=== PATIENT | male | born 1940 | race Hispanic/Latino ===

== ENCOUNTER 2017-06-24 06:38 | Day surgery (SDC) | payer MEDICARE, OTHER ==
[2017-06-24] MEDS ORDERED: ECOTRIN PO ONE (07:03)
[2017-06-24] MEDS ORDERED: NACL 0.9% 500 ML 500 ML ONE (07:03)
[2017-06-24 07:46] LABS: Basophils # (Auto) 0.1 K/mm3 (0.0-0.1); Basophils % (Auto) 0.7 % (0.0-1.8); Eosinophils # (Auto) 0.3 K/mm3 (0.0-0.4); Eosinophils % (Auto) 4.2 % (0.0-4.3); Hematocrit 39.6 % (35.5-45.6); Hemoglobin 13.4 gm/dl (11.8-15.2); Lymphocytes # (Auto) 1.7 K/mm3 (1.2-5.4); Lymphocytes % (Auto) 20.8 % (13.4-35.0); Mean Corpuscular HGB Conc 34 % (32-34); Mean Corpuscular Hemoglobin 29 pg (28-32); Mean Corpuscular Volume 85 fl (84-94); Monocytes # (Auto) 0.8 K/mm3 (0.0-0.8); Monocytes % (Auto) 9.3 % (0.0-7.3); Platelet Count 217 K/mm3 (140-440); Red Blood Count 4.64 M/mm3 (3.65-5.03); Red Cell Distribution Width 14.9 % (13.2-15.2)
[2017-06-24 07:53] LABS: INR 0.93 (0.87-1.13)
[2017-06-24] MEDS ORDERED: NACL 0.9% 500 ML 500 ML IV SCH (08:00)
[2017-06-24] MEDS ORDERED: HEPARIN/NS 5000 UNIT/500ML(CATH LAB) 1,000 ML IR ONE (08:13)
[2017-06-24] MEDS ORDERED: CALAN ONE (08:14)
[2017-06-24] MEDS ORDERED: XYLOCAINE 2% INFILTRATI ONE (08:14)
[2017-06-24] MEDS ORDERED: NITROGLYCERIN SYRINGE 0 ML ONE (08:14)
[2017-06-24] MEDS ORDERED: SUBLIMAZE ONE (08:14)
[2017-06-24] MEDS ORDERED: VERSED ONE (08:15)
[2017-06-24 08:32] LABS: BUN/Creatinine Ratio 19; Blood Urea Nitrogen 19 mg/dL (9-20); Calcium 9.2 mg/dL (8.4-10.2); Hemolysis Index 3
[2017-06-24] MEDS ORDERED: HALFPRIN EC PO ONE (08:42)
[2017-06-24 09:19] LABS: Chol/HDL Ratio 3.23 %
[2017-06-24] MEDS: HEPARIN 10,000 UNITS/10 ML ONE ×2 (09:20→09:32)
[2017-06-24] MEDS: APRESOLINE ONE ×2 (09:38→09:41)
[2017-06-24] MEDS ORDERED: HALFPRIN EC PO SCH (10:00)
--- NOTE | 2017-06-24 11:17 | Cardiac Catherization Report ---
INDICATION FOR PROCEDURE: The patient is a 76-year-old white gentleman with history of hypertension, dyslipidemia, intermittent claudication, was noted to have abnormal nuclear imaging. Had IV Lexiscan nuclear imaging performed which showed abnormal myocardial perfusion imaging demonstrating ischemia the basal inferior and apical septal myocardial carrasco. Fixed apical defect noted. Echocardiogram showed ejection fraction of 55-60% with a severely enlarged left atrium noted. Presently cardiac catheterization being performed for evaluation of his abnormal nuclear imaging with multiple risk factors. The patient is aware of the procedure, potential complications and alternatives of therapy available. DESCRIPTION OF PROCEDURE: The patient was brought to the catheterization laboratory in a fasting condition. The right wrist area and forearm thoroughly cleansed with Betadine solution. Sterile drapes were applied. The patient was evaluated for moderate sedation, and when it was felt appropriate, the patient was sedated with IV Versed and fentanyl at 9:13 a.m. Subsequently, after giving local anesthesia in the right wrist area, right radial artery puncture was made using 21-gauge arterial puncture needle. A 5-Hungarian slender sheath was introduced. A 5-Hungarian multipurpose catheter was used to obtain the angiograms of the left coronary artery in multiple views followed by angiograms of the left ventricle using the right JR4 catheter and the engagement of the right coronary artery with JR4 diagnostic catheter. Subsequently, it was decided to change the procedure to interventional procedure, namely measuring the IFR of the proximal RCA lesion. Subsequently, the patient was given IV heparin as anticoagulant, and using the same diagnostic catheter, after setting of the [place] pressure wire in a standard fashion, IFR being planned. [place] pressure wire was normalized in the standard fashion and a wire was passed across the lesion and IFR was measured. It was found to be 0.97, that not hemodynamically significant. Final angiograms were obtained, and there is no evidence of any injury from the [place] wire to the right coronary artery. The patient tolerated the procedure well. No untoward complications were noted. The patient tolerated the sedation well. The patient was monitored throughout with a pulse oximetry, EKG and noninvasive blood pressure monitoring. Sedation monitoring was discontinued at 9:45 a.m. Following findings were noted. HEMODYNAMICS: 1. Opening aortic pressure 195/96. Left ventricular pressure 198/28. No gradient across the aortic valve. Estimated ejection fraction of 65%. 2. Left ventriculogram done in MARTINEZ projection shows normal sized left ventricle, normal contractility. End-diastolic and systolic volumes are normal. Elevated end diastolic pressure of 28 mmHg noted. Right coronary artery dominant vessel shows 50-70% smooth lesion in the proximal one-third in addition to diffuse irregularities in the mid part. Distal vessel, large vessel without significant disease. IFR of the proximal lesion was measured. It was nonsignificant. 3. Left coronary artery arises normally from left coronary cusp. Diffuse calcification noted in the area of the left LAD and circumflex artery. Left main is very large smooth and normal. LAD curving around the apex shows mild smooth irregularities. This branch is also without significant disease. Ramus branch, fairly large branch, was 50% smooth, mildly calcific lesion in the distal part before its bifurcation. Circumflex artery relatively small caliber vessel without significant disease. FINAL IMPRESSION: Mild to moderate disease in the left coronary system and moderate disease in the proximal RCA and a functional evaluation with IFR showed it to be nonsignificant. He has excellent LV function. Also, has diastolic dysfunction with elevated end diastolic pressure noted. At this time, considering the above angiographic pictures, would continue medical therapy and aggressive risk factor modification. Findings were explained to the patient. The patient was discharged to the recovery area in stable condition. He will be monitored for next few hours. When stable, will be discharged home. JOB# [id number] BRUNO/MAMI MCNALLY
[2017-06-24 13:04] VITALS: BP 175/82
--- NOTE | 2017-06-24 13:54 | Short Stay Summary ---
Short Stay Documentation Date of service: 06/24/17 - History H&P: obtained from office - Allergies and Medications Current Medications: Allergies No Known Allergies Allergy (Verified 06/24/17 07:34) Home Medications Medication Instructions Recorded Confirmed Last Taken Type Dutasteride [Avodart] 0.5 mg PO DAILY 06/24/17 06/24/17 06/21/17 History 0.5mg Gabapentin [Neurontin] 300 mg PO DAILY 06/24/17 06/24/17 06/23/17 History 300mg Glycopyrrolate/Formoterol Fum 1 puff INHALATION DAILY 06/24/17 06/24/17 History [Bevespi Aerosphere Inhaler] 1 puff Hydralazine HCl 50 mg PO DAILY 06/24/17 06/24/17 06/23/17 History 50mg ISOSORBIDE MONOnitrate [Imdur ER] 30 mg PO DAILY 06/24/17 06/24/17 06/23/17 History 30mg Losartan [Cozaar] 100 mg PO DAILY 06/24/17 06/24/17 06/23/17 History 100mg Meloxicam 15 mg PO DAILY 06/24/17 06/24/17 06/23/17 History 15mg Pantoprazole [Protonix] 40 mg PO QDAY 06/24/17 06/24/17 06/23/17 History 40mg Tamsulosin [Flomax] 0.4 mg PO DAILY 06/24/17 06/24/17 06/23/17 History 0.4mg amLODIPine [Norvasc] 10 mg PO DAILY 06/24/17 06/24/17 06/23/17 History 10mg - Brief post op/procedure progress note Date of procedure: 06/24/17 Pre-op diagnosis: abnormal stress test Post-op diagnosis: same Procedure: C - see cath report Anesthesia: local Estimated blood loss: none Condition: stable - Disposition Condition at discharge: Good Disposition: [id number] TO HOME OR SELFCARE - Discharge Diagnoses (1) Abnormal stress test Status: Chronic (2) CAD (coronary artery disease) Status: Chronic (3) HTN (hypertension) Status: Chronic (4) Hyperlipidemia Status: Chronic Short Stay Discharge Plan Activity: advance as tolerated Diet: low fat, low cholesterol, low salt Wound: open to air, keep clean and dry, per your surgeon's advice Follow up with: SILVA DAWSON MD [Primary Care Provider] - 7 Days Forms: CardCath PCI D/C Instructions
== END 2017-06-24 13:10 | disposition home or self-care (01) ==
LOC: CATHLABREC 06:38
PROVIDERS: ATTEND Internal Medicine
DX: I25.10 Atherosclerotic heart disease of native coronary artery without angina pectoris (principal); I10 Essential (primary) hypertension; E78.5 Hyperlipidemia, unspecified; G25.81 Restless legs syndrome; F17.200 Nicotine dependence, unspecified, uncomplicated; Z79.01 Long term (current) use of anticoagulants
CPT/HCPCS: 36415; 80048; 80061; 85025; 85610; 85730; 93005; 93010; 93458; 93571; 99156; 99157; C1769; C1894; J0360; J1644; J2250; J3010; J7040; Q9967